=== PATIENT | male | born 1980 | race Caucasian/White ===

== ENCOUNTER 2018-11-29 13:03 | Emergency (ER) | payer BC ==
[2018-11-29 13:37] LABS: ABSOLUTE BASOPHILS # (AUTO) 0.1 10^3/uL (0.0-0.2); ABSOLUTE EOSINOPHILS # (AUTO) 0.2 10^3/uL (0.0-0.6); ABSOLUTE LYMPHOCYTES (AUTO) 2.4 10^3/uL (0.5-4.7); ABSOLUTE MONOCYTES (AUTO) 0.5 10^3/uL (0.1-1.4); ABSOLUTE NEUT (AUTO) 2.6 10^3/uL (1.7-8.2); BASOPHILS % (AUTO) 1.6 % (0-2); EOSINOPHILS % (AUTO) 4.1 % (0-6); HEMATOCRIT 35.8 % (37.9-51.0); HEMOGLOBIN 11.5 g/dL (13.5-17.0); LYMPHOCYTES % (AUTO) 41.5 % (13-45); MEAN CORPUSCULAR VOLUME 78 fl (80-97); MONOCYTES % (AUTO) 7.9 % (3-13); PLATELET COUNT 377 10^3/uL (150-450); RED BLOOD COUNT 4.58 10^6/uL (4.35-5.55); RED CELL DISTRIBUTION WIDTH 15.1 % (11.5-14.0); SEGMENTED NEUTROPHILS % (AUTO) 44.9 % (42-78); TOTAL CELLS COUNTED % (AUTO) 100 %; WHITE BLOOD COUNT 5.9 10^3/uL (4.0-10.5)
--- NOTE | 2018-11-29 13:39 | RADIOLOGY REPORT (SQ) ---
EXAM DESCRIPTION: CT HEAD WITHOUT COMPLETED DATE/TIME: 11/29/2018 1:26 pm REASON FOR STUDY: bed [address] vigil COMPARISON: None. TECHNIQUE: Axial images acquired through the brain without intravenous contrast. Images reviewed wi th bone, brain and subdural windows. Additional sagittal and coronal reconstructions were generated. Images stored on PACS. All CT scanners at this facility use dose modulation, iterative reconstruction, and/or weight based d osing when appropriate to reduce radiation dose to as low as reasonably achievable (ALARA). [facility]: Dose Right [facility]: CareDose [facility]: Dose Right [facility]: Teradose 4D [facility]: [place] RADIATION DOSE: CT Rad equipment meets quality standard of care and radiation dose reduction techniq ues were employed. CTDIvol: 53.2 mGy. DLP: 1070 mGy-cm. mGy. LIMITATIONS: None. FINDINGS: VENTRICLES: Normal size and contour. CEREBRUM: No masses. No hemorrhage. No midline shift. No evidence for acute infarction. Normal gra y/white matter differentiation. No areas of low density in the white matter. CEREBELLUM: No masses. No hemorrhage. No alteration of density. No evidence for acute infarction. EXTRAAXIAL SPACES: No fluid collections. No masses. ORBITS AND GLOBE: No intra- or extraconal masses. Normal contour of globe without masses. CALVARIUM: No fracture. PARANASAL SINUSES: Mucosal thickening right maxillary sinus. SOFT TISSUES: No mass or hematoma. OTHER: No other significant finding. IMPRESSION: NORMAL BRAIN CT WITHOUT CONTRAST. EVIDENCE OF ACUTE STROKE: NO. COMMENT: Quality ID # [id number]: Final reports with documentation of one or more dose reduction techniques (e.g., Automated exposure control, adjustment of the mA and/or kV according to patient size, use of iterative reconstruction technique) TECHNICAL DOCUMENTATION: JOB ID: [id number] [employer]- All Rights Reserved Reading location - IP/workstation name: [email or web address]
--- NOTE | 2018-11-29 13:41 | RADIOLOGY REPORT (SQ) ---
EXAM DESCRIPTION: CHEST SINGLE VIEW COMPLETED DATE/TIME: 11/29/2018 1:29 pm REASON FOR STUDY: bed [address] vigil COMPARISON: None. EXAM PARAMETERS: NUMBER OF VIEWS: One view. TECHNIQUE: Single frontal radiographic view of the chest acquired. RADIATION DOSE: NA LIMITATIONS: None. FINDINGS: LUNGS AND PLEURA: No opacities, masses or pneumothorax. No pleural effusion. MEDIASTINUM AND HILAR STRUCTURES: No masses. Contour normal. HEART AND VASCULAR STRUCTURES: Heart normal in size. Normal vasculature. BONES: No acute findings. HARDWARE: None in the chest. OTHER: No other significant finding. IMPRESSION: NO ACUTE RADIOGRAPHIC FINDING IN THE CHEST. TECHNICAL DOCUMENTATION: JOB ID: [id number] [employer]- All Rights Reserved Reading location - IP/workstation name: [email or web address]
[2018-11-29 14:05] LABS: ALANINE AMINOTRANSFERASE 30 U/L (21-72); ALBUMIN 4.5 g/dL (3.5-5.0); ALKALINE PHOSPHATASE 148 U/L (38-126); ANION GAP 11 (5-19); ASPARTATE AMINO TRANSFERASE 32 U/L (17-59); BILIRUBIN,DIRECT 0.3 mg/dL (0.0-0.4); BILIRUBIN,TOTAL 0.3 mg/dL (0.2-1.3); BLOOD UREA NITROGEN 12 mg/dL (7-20); CALCIUM 10.1 mg/dL (8.4-10.2); CARBON DIOXIDE 25 mmol/L (22-30); CHLORIDE 103 mmol/L (98-107); CREATINE KINASE 49 U/L (55-170); GLUCOSE 125 mg/dL (75-110); POTASSIUM 3.3 mmol/L (3.6-5.0); SODIUM 138.9 mmol/L (137-145); TOTAL PROTEIN 8.1 g/dL (6.3-8.2)
[2018-11-29 14:17] LABS: CREATINE KINASE MB 0.43 ng/mL (<4.55); NT PRO BNP 54 pg/mL (<125)
[2018-11-29 14:21] LABS: TROPONIN I < 0.012 ng/mL
[2018-11-29] MEDS ORDERED: LISINOPRIL 10 MG TABLET PO ONE (14:54)
[2018-11-29] MEDS ORDERED: NORMAL SALINE 500 ML IV ONE (14:56)
[2018-11-29] MEDS ORDERED: LISINOPRIL 10 MG TABLET ONE (15:04)
--- NOTE | 2018-11-29 16:50 | ER Document Report ---
ED General - General Chief Complaint: High Blood Pressure Stated Complaint: BLOOD PRESSURE ISSUES Time Seen by Provider: 11/29/18 14:43 TRAVEL OUTSIDE OF THE [place] IN LAST 30 DAYS: No - HPI Notes: Patient is a 38-year-old male presents emergency department for evaluation of a headache and elevated blood pressure. 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 He developed a headache. He states if he developed a similar headache at home he would have just taken some ibuprofen. Instead he had his blood pressure check and was found to be high, so he presents to the emergency department for evaluation. He is supposed to be taking lisinopril. He does not have any idea of the dosage. He admits he does not follow closely with his family doctor. He states that he takes it "sometimes." He cannot tell me the last time he took his medication. He denies any visual changes. No difficulty speaking or swallowing. Moving his arms and legs without difficulty. Without any sort of medication intervention in as far as pain, the patient's headache is completely gone. - Related Data Allergies/Adverse Reactions: No Known Allergies Allergy (Unverified 11/29/18 13:32) Past Medical History - General Information source: Patient - Social History Smoking Status: Current Every Day Smoker Chew tobacco use (# tins/day): No Frequency of alcohol use: Social Drug Abuse: None Family History: Reviewed & Not Pertinent Patient has suicidal ideation: No Patient has homicidal ideation: No - Past Medical History Cardiac Medical History: Reports: Hx Hypertension Renal/ Medical History: Reports: Hx Kidney Stones. Denies: Hx Peritoneal Dialysis GI Medical History: Reports: Hx Gastroesophageal Reflux Disease Review of Systems - Review of Systems Constitutional: No symptoms reported EENT: No symptoms reported Cardiovascular: No symptoms reported Respiratory: No symptoms reported Gastrointestinal: No symptoms reported Genitourinary: No symptoms reported Male Genitourinary: No symptoms reported Musculoskeletal: No symptoms reported Skin: No symptoms reported Neurological/Psychological: No symptoms reported Physical Exam - Vital signs Vitals: Pulse Ox 98 11/29/18 13:10 - Notes Notes: Vital signs reviewed, please refer to chart. Head is normocephalic, atraumatic. Pupils equal round, reactive to light. Neck is supple without meningismus. Heart is regular rate and rhythm. Lungs are clear to auscultation bilaterally. Abdomen is soft, nontender, normoactive bowel sounds throughout. Extremities without cyanosis, clubbing. Posterior calves are nontender. Peripheral pulses are equal. Skin is warm and dry. Patient is awake, alert, oriented x3. Cranial nerves II through XII are grossly intact without focal neurological deficits. Strength is plus 5 out of 5 all upper and lower extremities. Sensation is intact. Intact [id number], rapid altering movements, heel -to-fields. Course - Re-evaluation Re-evalutation: 11/29/18 16:48 Patient presented to the emergency department for evaluation. He had a headache as well as elevated blood pressure when EMS found him. He was medicated with clonidine. His blood pressure came down significantly. He has absolutely no neurological deficits, no signs of endorgan damage on laboratory investigations her EKG. I had an extensive conversation with the patient regarding the increased risks of heart attack, stroke, and sudden with elevated blood pressure. He voiced understanding to this. He was given lisinopril, I gave him 20 mg, not knowing his regular home dose. He is going back home tomorrow. The importance of starting his medication and taking it as suggested was stressed to the patient. He voiced understanding to the need to take this regularly as well as the risks associated with not doing so. He is feeling improved and would like to be discharged. I will send him home on the condition that he follow-up in the next several days with his primary care provider. He is told he needs to take his medication as prescribed. He should be checking his blood pressure regularly as an outpatient, bring these numbers into his primary care provider. He voiced understanding to this and the patient was discharged. - Vital Signs Vital signs: Temp Pulse Resp BP Pulse Ox 97.9 F 18 174/98 H 97 11/29/18 13:29 11/29/18 15:31 11/29/18 15:31 11/29/18 15:31 - Laboratory Result Diagrams: 11/29/18 12:57 11/29/18 12:57 Laboratory results interpreted by me: 11/29/18 11/29/18 12:57 12:57 Hgb 11.5 L Hct 35.8 L MCV 78 L MCH 25.0 L RDW 15.1 H Potassium 3.3 L Glucose 125 H Alkaline Phosphatase 148 H Creatine Kinase 49 L - Diagnostic Test Radiology reviewed: Reports reviewed Radiology results interpreted by me: 11/29/18 16:49 Chest X-Ray 11/29/18 00:00 IMPRESSION: NO ACUTE RADIOGRAPHIC FINDING IN THE CHEST. Head CT 11/29/18 00:00 IMPRESSION: NORMAL BRAIN CT WITHOUT CONTRAST. EVIDENCE OF ACUTE STROKE: NO. - EKG Interpretation by Me Additional EKG results interpreted by me: 11/29/18 16:49 Sinus mechanism with a rate of 66 bpm. Normal axis and intervals, no acute ST changes concerning for ischemia or infarction. Discharge - Discharge Clinical Impression: Hypertension, Noncompliance with medication regimen Condition: Stable Disposition: HOME, SELF-CARE Instructions: High Blood Pressure, Requiring Treatment ([facility]) Additional Instructions: It is very important that you take your medication as prescribed. Keep a record of your blood pressures as discussed, follow-up with your doctor by next week. If you develop visual changes, your headache returns, or you develop new or concerning symptoms of any sort, return immediately to the emergency department for evaluation.
[2018-11-29 17:32] VITALS: BP 134/89
--- NOTE | 2018-11-29 17:44 | EKG REPORT ---
SEVERITY:- NORMAL ECG - SINUS RHYTHM : Confirmed by: Nallely Ruvalcaba 29-Nov-2018 17:43:20
== END 2018-11-29 17:10 | disposition home or self-care (01) ==
LOC: ER 13:03
DX: I10 Essential (primary) hypertension (principal); Z91.14 Patient's other noncompliance with medication regimen; R51 Headache; F17.200 Nicotine dependence, unspecified, uncomplicated
CPT/HCPCS: 93005; 99284; 96360; 36415; 82553; 82550; 85025; 80053; 84484; 83880; 71045; 70450; 93010; J7040